=== PATIENT | female | born 1935 | race Caucasian/White ===

== ENCOUNTER 2022-08-29 10:33 | Emergency (ER) | payer MEDICARE, MEDICAID ==
[2022-08-29] MEDS ORDERED: Ondansetron 4 MG/2 ML SDV IVPUSH ONE (11:05)
[2022-08-29] MEDS ORDERED: Meclizine 25 MG Tab PO ONE (11:06)
[2022-08-29] MEDS ORDERED: Sodium Chloride 0.9% 1,000 ML IV SCH (11:15)
[2022-08-29 11:37] LABS: ESTIMATED GFR 62 mL/min (>60)
[2022-08-29 13:03] LABS: CORONAVIRUS COVID-19 NAA NEGATIVE (NEGATIVE)
[2022-08-29 13:41] VITALS: BP 163/77; PULSE 62
== END 2022-08-29 14:28 | disposition home or self-care (01) ==
LOC: JP.ED 10:33
DX: E86.0 Dehydration (principal); I48.91 Unspecified atrial fibrillation; I10 Essential (primary) hypertension; M19.90 Unspecified osteoarthritis, unspecified site; Z79.01 Long term (current) use of anticoagulants; Z79.899 Other long term (current) drug therapy; Z20.822 Contact with and (suspected) exposure to COVID-19
CPT/HCPCS: 0241U; 36415; 70450; 80053; 81001; 85025; 96361; 96374; 99282; 99284; A9270; J2405; J7030

== ENCOUNTER 2024-08-25 11:07 | Emergency (ER) | payer MEDICARE, MEDICAID ==
[2024-08-25 11:43] VITALS: BP 167/90; PULSE 58
== END 2024-08-25 13:01 | disposition home or self-care (01) ==
LOC: JP.ED 11:07
DX: R53.1 Weakness (principal); I10 Essential (primary) hypertension; I48.91 Unspecified atrial fibrillation; Z90.49 Acquired absence of other specified parts of digestive tract; Z90.710 Acquired absence of both cervix and uterus; Z79.01 Long term (current) use of anticoagulants
CPT/HCPCS: 99283